=== PATIENT | female | born 1995 | race Caucasian/White ===

== ENCOUNTER 2018-02-16 09:35 | Inpatient (IN) | payer OTHER ==
[~2018-02-16] VITALS: Ht 157.5 cm; Wt 85.0 kg
[2018-02-16] MEDS ORDERED: ALBUTEROL SULFATE 2.5 MG/3 ML ONE (10:20)
[2018-02-16] MEDS ORDERED: ALBUTEROL SULFATE 2.5 MG/3 ML NPPB ONE (10:30)
[2018-02-16] MEDS ORDERED: SODIUM CHLORIDE FLUSH 10ML SYR IVF ONE (11:30)
[2018-02-16 12:02] LABS: BASOPHILS # (AUTO) 0.01 x10^3/uL (0-0.1); BASOPHILS % (AUTO) 0 % (0-1); EOSINOPHILS # (AUTO) 0.01 x10^3/uL (0-0.4); EOSINOPHILS % (AUTO) 0 % (1-7); LYMPHOCYTES # (AUTO) 1.57 x10^3/uL (1-3.4); LYMPHOCYTES % (AUTO) 15 % (22-44); MD NO; MEAN CORPUSCULAR HEMOGLOBIN 28.5 pg (27.0-34.8); MEAN CORPUSCULAR HGB CONC 33.1 g/dL (32.4-35.8); MONOCYTES # (AUTO) 0.54 x10^3/uL (0.2-0.8); MONOCYTES % (AUTO) 5 % (2-9); NEUTROPHILS # (AUTO) 8.08 x10^3/uL (1.8-6.8); NEUTROPHILS % (AUTO) 79 % (42-75); PLATELET COUNT 328 x10^3/uL (130-400); RED BLOOD COUNT 4.76 x10^6/uL (3.82-5.3); RED CELL DISTRIBUTION WIDTH 14.4 % (9.6-15.2)
[2018-02-16 12:11] LABS: ALBUMIN 3.2 g/dL (3.4-5.0); ANION GAP 8 mmol/L (5-15); CALCIUM 8.5 mg/dL (8.5-10.1); CHLORIDE 104 mmol/L (98-107)
[2018-02-16 12:12] LABS: CREATININE 0.84 mg/dL (0.55-1.02)
[2018-02-16] MEDS ORDERED: OMNIPAQUE 350 MG/ML, 100ML BOTTLE ONE (12:39)
[2018-02-16] MEDS ORDERED: AZITHROMYCIN 500 MG TABLET PO ONE (14:05)
[2018-02-16] MEDS ORDERED: AZITHROMYCIN 250 MG TABLET ONE (14:23)
[2018-02-16] MEDS ORDERED: CEFTRIAXONE PMX 1GM/50ML 50 ML ONE (14:23)
[2018-02-16] MEDS ORDERED: POTASSIUM CHLORIDE 20 MEQ TAB.ER.PRT ONE ×2 (14:24→15:59)
[2018-02-16] MEDS ORDERED: CEFTRIAXONE PMX 1GM/50ML 50 ML IVPB ONE (14:30)
[2018-02-16] MEDS ORDERED: POTASSIUM CHLORIDE 20 MEQ TAB.ER.PRT PO ONE (14:30)
[2018-02-16] MEDS ORDERED: DOCUSATE 100 MG CAPSULE PO PRN (15:00)
[2018-02-16] MEDS ORDERED: ACETAMINOPHEN 325 MG TABLET PO PRN (15:00)
[2018-02-16] MEDS ORDERED: GUAIFENESIN/DM 200-20MG, 10ML UDC PO PRN (15:00)
[2018-02-16 15:07] VITALS: BP 114/80
[2018-02-16] MEDS: SODIUM CHLORIDE 0.9% 1,000 ML IV SCH ×2 (15:37→23:06)
[2018-02-16] MEDS: ENOXAPARIN 40 MG/0.4 ML SQ SCH (15:38)
[2018-02-16] MEDS: GUAIFENESIN 100 MG/5 ML, 10ML UDC PO SCH ×2 (16:09→20:39)
[2018-02-16] MEDS: POTASSIUM CHLORIDE 20 MEQ PACKET PO SCH (16:10)
[2018-02-16 20:46] VITALS: BP 108/71
[2018-02-17 02:12] VITALS: BP 102/66
[2018-02-17 05:45] LABS: BASOPHILS # (AUTO) 0.01 x10^3/uL (0-0.1); BASOPHILS % (AUTO) 0 % (0-1); EOSINOPHILS # (AUTO) 0.02 x10^3/uL (0-0.4); EOSINOPHILS % (AUTO) 0 % (1-7); LYMPHOCYTES # (AUTO) 2.42 x10^3/uL (1-3.4); LYMPHOCYTES % (AUTO) 26 % (22-44); MD NO; MEAN CORPUSCULAR HGB CONC 33.4 g/dL (32.4-35.8); MEAN CORPUSCULAR VOLUME 86.8 fL (80-100); MEAN PLATELET VOLUME 7.7 fL (7.4-10.4); MONOCYTES # (AUTO) 0.92 x10^3/uL (0.2-0.8); MONOCYTES % (AUTO) 10 % (2-9); NEUTROPHILS # (AUTO) 5.82 x10^3/uL (1.8-6.8); NEUTROPHILS % (AUTO) 63 % (42-75); PLATELET COUNT 322 x10^3/uL (130-400); RED CELL DISTRIBUTION WIDTH 14.4 % (9.6-15.2)
[2018-02-17] MEDS: GUAIFENESIN 100 MG/5 ML, 10ML UDC PO SCH ×2 (05:49→11:05)
[2018-02-17] MEDS: SODIUM CHLORIDE 0.9% 1,000 ML IV SCH ×2 (05:57→15:24)
[2018-02-17 06:05] LABS: CHLORIDE 109 mmol/L (98-107)
[2018-02-17 06:10] LABS: ANION GAP 8 mmol/L (5-15); CALCIUM 7.8 mg/dL (8.5-10.1); CREATININE 0.53 mg/dL (0.55-1.02)
[2018-02-17 08:20] VITALS: BP 123/81
[2018-02-17] MEDS ORDERED: POTASSIUM CHLORIDE 20 MEQ TAB.ER.PRT ONE (08:30)
[2018-02-17] MEDS: CEFTRIAXONE PMX 1GM/50ML 50 ML IV SCH (08:36)
[2018-02-17] MEDS: POTASSIUM CHLORIDE 20 MEQ PACKET PO SCH (08:36)
[2018-02-17] MEDS ORDERED: AZITHROMYCIN 500 MG in SODIUM CHLORIDE 0.9% 250 ML IV SCH (09:00)
[2018-02-17] MEDS: DOXYCYCLINE 100 MG in DEXTROSE 5% 250 ML IV SCH ×2 (09:21→20:32)
[2018-02-17] MEDS: ALBUTEROL SULFATE 2.5 MG/3 ML NPPB PRN ×2 (11:44→22:36)
[2018-02-17 14:17] VITALS: BP 110/72
[2018-02-17] MEDS ORDERED: GUAIFENESIN/DM 200-20MG, 10ML UDC PO PRN (15:00)
[2018-02-17] MEDS: ENOXAPARIN 40 MG/0.4 ML SQ SCH (15:24)
[2018-02-17 19:07] VITALS: BP 107/73
[2018-02-18] MEDS: SODIUM CHLORIDE 0.9% 1,000 ML IV SCH ×3 (00:42→14:34)
[2018-02-18 02:10] VITALS: BP 97/63
[2018-02-18 05:22] LABS: BASOPHILS # (AUTO) 0.04 x10^3/uL (0-0.1); BASOPHILS % (AUTO) 0 % (0-1); EOSINOPHILS # (AUTO) 0.03 x10^3/uL (0-0.4); EOSINOPHILS % (AUTO) 0 % (1-7); LYMPHOCYTES # (AUTO) 3.13 x10^3/uL (1-3.4); LYMPHOCYTES % (AUTO) 35 % (22-44); MD NO; MEAN CORPUSCULAR HEMOGLOBIN 28.2 pg (27.0-34.8); MEAN CORPUSCULAR HGB CONC 32.6 g/dL (32.4-35.8); MEAN CORPUSCULAR VOLUME 86.4 fL (80-100); MEAN PLATELET VOLUME 7.6 fL (7.4-10.4); MONOCYTES # (AUTO) 0.76 x10^3/uL (0.2-0.8); MONOCYTES % (AUTO) 9 % (2-9); NEUTROPHILS # (AUTO) 4.96 x10^3/uL (1.8-6.8); NEUTROPHILS % (AUTO) 56 % (42-75); PLATELET COUNT 344 x10^3/uL (130-400); RED CELL DISTRIBUTION WIDTH 14.4 % (9.6-15.2)
[2018-02-18 05:25] LABS: ANION GAP 9 mmol/L (5-15); CALCIUM 7.6 mg/dL (8.5-10.1); CHLORIDE 110 mmol/L (98-107); CREATININE 0.52 mg/dL (0.55-1.02)
[2018-02-18 08:00] VITALS: BP 115/77
[2018-02-18] MEDS ORDERED: POTASSIUM CHLORIDE 20 MEQ TAB.ER.PRT ONE (08:43)
[2018-02-18] MEDS: POTASSIUM CHLORIDE 20 MEQ PACKET PO SCH (08:45)
[2018-02-18] MEDS: ALBUTEROL SULFATE 2.5 MG/3 ML NPPB PRN (08:55)
[2018-02-18] MEDS: DOXYCYCLINE 100 MG in DEXTROSE 5% 250 ML IV SCH (09:36)
[2018-02-18] MEDS: CEFTRIAXONE PMX 1GM/50ML 50 ML IV SCH (11:08)
[2018-02-18 13:53] VITALS: BP 120/75
[2018-02-18] MEDS ORDERED: CEFTRIAXONE PMX 1GM/50ML 50 ML IV SCH (14:30)
[2018-02-18] MEDS ORDERED: CEFD300C37 PO (14:45)
[2018-02-18] MEDS ORDERED: DOXY100T PO (14:45)
[2018-02-18] MEDS: ENOXAPARIN 40 MG/0.4 ML SQ SCH (15:00)
[2018-02-18 16:34] VITALS: BP 113/74
[2018-02-18] MEDS ORDERED: OSELTAMIVIR 75 MG CAPSULE PO SCH (21:00)
[2018-02-19] MEDS ORDERED: DOXYCYCLINE 100MG TABLET PO SCH (09:00)
[2018-02-19] MEDS ORDERED: CEFTRIAXONE PMX 1GM/50ML 50 ML IV SCH (12:00)
== END 2018-02-18 16:55 | disposition home or self-care (01) | DRG 871 ==
LOC: ED 14:33 → 4NOR 14:34 → ED 14:45
PROVIDERS: ADMIT Internal Medicine; ATTEND Internal Medicine
DX: A41.9 Sepsis, unspecified organism (principal); J96.01 Acute respiratory failure with hypoxia; J11.00 Influenza due to unidentified influenza virus with unspecified type of pneumonia; E87.6 Hypokalemia; F41.9 Anxiety disorder, unspecified; G47.00 Insomnia, unspecified
CPT/HCPCS: 36415; 71046; 71275; 80048; 82040; 83605; 83735; 84145; 85025; 87040; 87070; 87205; 93005; 94640; 99285; J0696; J1650; J7060; J7613; Q9967; J7030; J7512

== ENCOUNTER 2019-03-06 12:37 | Emergency (ER) | payer OTHER ==
[~2019-03-06] VITALS: Ht 157.5 cm; Wt 82.9 kg
[~2019-03-06 12:37] MED LIST: CEFD300C37 PO; DOXY100T PO
--- NOTE | 2019-03-06 12:53 | NUR ---
Pt ambulates to bathroom with ED RN with steady gait and balance. MELANY.
[2019-03-06] MEDS ORDERED: LORazepam 1MG TABLET ONE (13:15)
[2019-03-06] MEDS ORDERED: LORazepam 1MG TABLET PO ONE (13:30)
[2019-03-06 13:31] LABS: BASOPHILS # (AUTO) 0.04 x10^3/uL (0-0.1); BASOPHILS % (AUTO) 0 % (0-1); EOSINOPHILS # (AUTO) 0.03 x10^3/uL (0-0.4); EOSINOPHILS % (AUTO) 0 % (1-7); LYMPHOCYTES # (AUTO) 3.08 x10^3/uL (1-3.4); LYMPHOCYTES % (AUTO) 29 % (22-44); MD NO; MEAN CORPUSCULAR HEMOGLOBIN 29.2 pg (27.0-34.8); MEAN CORPUSCULAR HGB CONC 32.5 g/dL (32.4-35.8); MEAN CORPUSCULAR VOLUME 89.9 fL (80-100); MEAN PLATELET VOLUME 8.1 fL (7.4-10.4); MONOCYTES # (AUTO) 0.57 x10^3/uL (0.2-0.8); MONOCYTES % (AUTO) 5 % (2-9); NEUTROPHILS # (AUTO) 6.76 x10^3/uL (1.8-6.8); NEUTROPHILS % (AUTO) 65 % (42-75); PLATELET COUNT 353 x10^3/uL (130-400); RED BLOOD COUNT 4.91 x10^6/uL (3.82-5.3); RED CELL DISTRIBUTION WIDTH 14.3 % (9.6-15.2)
[2019-03-06] MEDS ORDERED: birth control (13:31)
[2019-03-06 13:44] LABS: ALBUMIN 4.5 g/dL (3.4-5.0); ANION GAP 12 mmol/L (5-15); CALCIUM 10.1 mg/dL (8.5-10.1); CHLORIDE 107 mmol/L (98-107)
--- NOTE | 2019-03-06 13:47 | NUR ---
LATE NOTE ENTRY FOR 1245: Pt ambulates with steady gait and balance to room from triage. Pt has rapid respirations at 25 RR per minute, is tachycardic sinus rhythm between 100-110's. Pt c/o left sided chest pain that radiates to left arm that is constant. Pt c/o lightheadedness, nausea, shortness of breath, and sweating. Pt states, "I have had panic attacks in the past in [facility], and I was able to get through them by breathing into a pillow in my room, or breathing into a towel in a bathroom. This time I started having the chest pain for the first time and it wouldn't let up."
[2019-03-06 13:49] LABS: CREATININE 0.85 mg/dL (0.55-1.02); TROPONIN I < 0.015 ng/mL (0.000-0.045)
--- NOTE | 2019-03-06 13:53 | NUR ---
Pt received medication per [facility]. Pt connected to NIBP, continous pulse ox, and rn cardiac cath. Bedside rail up for safety measures, call light within reach. No needs expressed at this time.
[2019-03-06 14:10] VITALS: BP 118/76
== END 2019-03-06 14:34 | disposition home or self-care (01) ==
LOC: ED 14:28
DX: R07.2 Precordial pain (principal); F41.1 Generalized anxiety disorder
CPT/HCPCS: 36415; 71045; 80048; 82040; 84484; 85025; 93005; 99284